=== PATIENT | female | born 1985 ===

== ENCOUNTER 2019-12-25 08:14 | Outpatient (CLI) | payer OTHER | END 2019-12-25 08:22 | disposition home or self-care (01) | LOC: SONOGRAMA 08:14 | DX: N84.0 Polyp of corpus uteri (principal) ==

== ENCOUNTER 2021-11-18 14:47 | Outpatient (CLI) | payer OTHER | END 2021-11-18 15:35 | disposition home or self-care (01) | LOC: NST 14:47 | PROVIDERS: ATTEND Obstetrics & Gynecology Maternal & Fetal Medicine | DX: Z34.83 Encounter for supervision of other normal pregnancy, third trimester (principal) ==

== ENCOUNTER 2021-12-20 09:39 | Outpatient (CLI) | payer OTHER | END 2021-12-20 10:39 | disposition home or self-care (01) | LOC: NST 09:39 | PROVIDERS: ATTEND Obstetrics & Gynecology | DX: Z34.83 Encounter for supervision of other normal pregnancy, third trimester (principal) ==

== ENCOUNTER 2021-12-27 12:28 | Outpatient (CLI) | payer OTHER | END 2021-12-27 13:29 | disposition home or self-care (01) | LOC: NST 12:28 | PROVIDERS: ATTEND Obstetrics & Gynecology | DX: Z34.83 Encounter for supervision of other normal pregnancy, third trimester (principal) ==

== ENCOUNTER 2022-01-07 08:56 | Outpatient (CLI) | payer OTHER ==
[2022-01-08] MEDS ORDERED: LABETALOL HCL100 MG PO (11:49)
[2022-01-08] MEDS ORDERED: OBTREX DHA COM1 EACH PO (11:50)
[2022-01-08] MEDS ORDERED: SYNTHROID88 MCG PO (11:50)
== END 2022-01-07 09:45 | disposition home or self-care (01) ==
LOC: NST 08:56
PROVIDERS: ATTEND Obstetrics & Gynecology
DX: Z34.83 Encounter for supervision of other normal pregnancy, third trimester (principal)

== ENCOUNTER 2022-01-07 11:31 | Inpatient (IN) | payer OTHER ==
[~2022-01-07] VITALS: Ht 157.5 cm; Wt 3.6 kg
[2022-01-08] MEDS ORDERED: LABETALOL HCL100 MG PO (11:49)
[2022-01-08] MEDS ORDERED: OBTREX DHA COM1 EACH PO (11:50)
[2022-01-08] MEDS ORDERED: SYNTHROID88 MCG PO (11:50)
[2022-01-22] MEDS ORDERED: OXYC1TAB9 PO (10:49)
[2022-01-22] MEDS ORDERED: KETO10TA2 PO (10:49)
== END 2022-01-22 12:06 | disposition home or self-care (01) | DRG 788 ==
LOC: OB/GYN 11:31 → LDR 01-18 14:59 → OB/GYN 01-18 14:59
PROVIDERS: ADMIT Obstetrics & Gynecology; ATTEND Obstetrics & Gynecology
PROC: 4A1HXCZ Monitoring of Products of Conception, Cardiac Rate, External Approach (ICD-10-PCS; 2022-01-18)
PROC: 3E0P7VZ Introduction of Hormone into Female Reproductive, Via Natural or Artificial Opening (ICD-10-PCS; 2022-01-18)
PROC: 3E033VJ Introduction of Other Hormone into Peripheral Vein, Percutaneous Approach (ICD-10-PCS; 2022-01-19)
PROC: 10D00Z1 Extraction of Products of Conception, Low, Open Approach (ICD-10-PCS; principal; 2022-01-19 13:00)
DX: O61.0 Failed medical induction of labor (principal); O36.63X0 Maternal care for excessive fetal growth, third trimester, not applicable or unspecified; Z37.0 Single live birth; Z3A.39 39 weeks gestation of pregnancy; Z20.822 Contact with and (suspected) exposure to COVID-19

== ENCOUNTER 2022-01-08 11:34 | Emergency (ER) | payer OTHER ==
[~2022-01-08] VITALS: Ht 157.5 cm; Wt 108.9 kg
[2022-01-08] MEDS ORDERED: LABETALOL HCL100 MG PO (11:49)
[2022-01-08] MEDS ORDERED: SYNTHROID88 MCG PO (11:50)
[2022-01-08] MEDS ORDERED: OBTREX DHA COM1 EACH PO (11:50)
== END 2022-01-08 13:29 | disposition home or self-care (01) ==
LOC: ER 11:34
DX: O98.513 Other viral diseases complicating pregnancy, third trimester (principal); B34.9 Viral infection, unspecified; Z3A.38 38 weeks gestation of pregnancy; I10 Essential (primary) hypertension; E03.8 Other specified hypothyroidism

== ENCOUNTER 2022-01-10 10:08 | Outpatient (CLI) | payer OTHER ==
[~2022-01-10 10:08] MED LIST: LABETALOL HCL100 MG PO; OBTREX DHA COM1 EACH PO; SYNTHROID88 MCG PO
== END 2022-01-10 14:07 | disposition home or self-care (01) ==
LOC: NST 10:08
PROVIDERS: ATTEND Obstetrics & Gynecology
DX: Z34.83 Encounter for supervision of other normal pregnancy, third trimester (principal)

== ENCOUNTER 2022-01-16 10:43 | Outpatient (CLI) | payer OTHER | END 2022-01-16 12:27 | disposition home or self-care (01) | LOC: NST 10:43 | PROVIDERS: ATTEND Obstetrics & Gynecology | DX: Z34.83 Encounter for supervision of other normal pregnancy, third trimester (principal) ==